=== PATIENT | female | born 1985 | race Caucasian/White ===

== ENCOUNTER → 2024-05-24 12:49 | Outpatient (BNVA) | payer BC, MEDICAID, SELFPAY | PROVIDERS: PCP Nurse Practitioner; Referring Provider Nurse Practitioner; Visit Provider Nurse Practitioner | DX: K92.1 Melena (principal) | CPT/HCPCS: 82270; 87045; 87427; 87449 ==

== ENCOUNTER → 2024-12-31 13:46 | Outpatient (BNVA) | payer BC, SELFPAY | PROVIDERS: PCP Nurse Practitioner; Visit Provider Nurse Practitioner | DX: R50.9 Fever, unspecified (principal) | CPT/HCPCS: 87880 ==